=== PATIENT | female | born 1975 | race Caucasian/White ===

== ENCOUNTER → 2016-10-14 | Outpatient (CLI) | payer BC ==
[2016-10-14 12:02] LABS: Follicle Stimulating Hormone 7.1 mIU/mL
== END | disposition home or self-care (01) ==
LOC: LABWHC1 07:36
PROVIDERS: ATTEND Obstetrics & Gynecology
DX: L70.9 Acne, unspecified (principal); R53.83 Other fatigue
CPT/HCPCS: 36415; 82627; 82670; 83001; 84403

== ENCOUNTER 2016-10-15 09:43 | Emergency (ER) | payer BC ==
[2016-10-15 10:11] VITALS: BP 144/77; PULSE 82; RESP 18; TEMP 98.2
[2016-10-15] MEDS ORDERED: predniSONE 50 MG TAB PO STA (10:36)
--- NOTE | 2016-10-15 10:43 | ED ---
General Adult HPI - General Chief complaint: Skin/Abscess/Foreign Body Stated complaint: hives Time Seen by Provider: 10/15/16 10:29 Source: patient, RN notes reviewed Mode of arrival: ambulatory Limitations: no limitations - History of Present Illness Initial comments: Patient is a pleasant 41-year-old female presenting to the emergency Department with complaints of facial hives. Onset was just the past day. Patient has used a new soap recently. Patient also recently started Diflucan and Macrobid. Patient has used Diflucan and Macrobid multiple times previously. Patient complains of hives and itching on the face. Patient also noticed some mild swelling of the lip. No difficulty in breathing. No tongue or throat swelling. No history of hives in the face previously. No other area of involvement. No dyspnea. - Related Data Home Medications Medication Instructions Recorded Confirmed Fluconazole [Diflucan] 150 mg PO Q30D 12/29/15 01/06/16 Norethindrone AC-Eth Estradiol 1 tab PO DAILY 12/29/15 01/06/16 [Mabel 1.5 mg-30 Mcg Tablet] Previous Rx's Medication Instructions Recorded Acetaminophen-Codeine 300-30mg 1 - 2 each PO Q4HR PRN #40 tab 01/08/16 [Tylenol w/codeine #3] Ibuprofen [Motrin] 600 mg PO Q6HR PRN #40 tab 01/08/16 predniSONE 20 mg PO BID #10 tab 10/15/16 Allergies Allergy/AdvReac Type Severity Reaction Status Date / Time Opioids - Morphine Analogues AdvReac Nausea & Verified 10/15/16 10:11 Vomiting Review of Systems ROS Statement: Those systems with pertinent positive or pertinent negative responses have been documented in the HPI. ROS Other: All systems not noted in ROS Statement are negative. Constitutional: Denies: fever Eyes: Denies: eye pain ENT: Denies: ear pain Respiratory: Denies: cough, dyspnea Cardiovascular: Denies: chest pain Endocrine: Denies: fatigue Gastrointestinal: Denies: abdominal pain Musculoskeletal: Denies: back pain Skin: Reports: rash Neurological: Denies: weakness Past Medical History Additional Past Medical History / Comment(s): anemia, uterine fibroids History of Any Multi-Drug Resistant Organisms: None Reported Past Surgical History: Appendectomy, Section, Cholecystectomy, Hysterectomy, Uterine Ablation Additional Past Surgical History / Comment(s): LYMPH NODE BIOPSY LT SIDE OF NECK -BENIGN, hysterectomy 01-06-2016 Past Anesthesia/Blood Transfusion Reactions: No Reported Reaction Past Psychological History: No Psychological Hx Reported Smoking Status: Never smoker Past Alcohol Use History: Rare Past Drug Use History: None Reported, Unable to Obtain - Past Family History Mother Family Medical History: No Reported History Father Additional Family Medical History / Comment(s): father had a fall with brain injury, unable to administer anticoagulant, developed blood clot in his lungs General Exam Limitations: no limitations General appearance: alert, in no apparent distress Head exam: Present: atraumatic, normocephalic Eye exam: Present: normal appearance ENT exam: Present: normal oropharynx, other (No edema of the pharynx or tongue. There is trace edema of the lower lip) Neck exam: Present: normal inspection Respiratory exam: Present: normal lung sounds bilaterally Cardiovascular Exam: Present: regular rate, normal rhythm GI/Abdominal exam: Present: soft. Absent: distended, tenderness Extremities exam: Present: normal inspection Neurological exam: Present: alert Psychiatric exam: Present: normal affect, normal mood Skin exam: Present: urticaria (Several hives are present on the face) Course Vital Signs 10/15/16 10:06 Temperature 98.2 F Pulse Rate 82 Respiratory 18 Rate Blood Pressure 144/77 O2 Sat by Pulse 98 Oximetry Disposition Clinical Impression: Urticaria Disposition: HOME SELF-CARE Condition: Stable Instructions: Urticaria (ED), Angioedema (ED) Additional Instructions: [id number] Benadryl 4 times daily for the next 5 days. Discontinue facial wash. Also discontinue Diflucan and Macrobid. Please follow-up with primary care physician Monday. Return for swelling of the tongue or throat, difficulty breathing, increased swelling or worsening symptoms or other concerns. Prescriptions: predniSONE 20 mg PO BID #10 tab Referrals: Sherman Estes MD [Primary Care Provider] - 1-2 days
== END 2016-10-15 11:23 | disposition home or self-care (01) ==
LOC: EC 09:43
DX: L50.9 Urticaria, unspecified (principal); Z79.3 Long term (current) use of hormonal contraceptives; Z79.899 Other long term (current) drug therapy; Z88.5 Allergy status to narcotic agent
CPT/HCPCS: 99283; J7512

== ENCOUNTER → 2017-03-03 | Outpatient (CLI) | payer BC ==
[2017-03-03 07:48] LABS: Basophils # (A) 0.1 k/uL (0-0.2); Basophils % (A) 1 %; CHCM 35.5; Eosinophils # (A) 0.2 k/uL (0-0.7); Eosinophils % (A) 3 %; HCT 44.1 % (34.0-46.0); HGB 14.9 gm/dL (11.4-16.0); Luc % (Auto) 2; Lymphocytes # (A) 1.3 k/uL (1.0-4.8); Lymphocytes % (A) 22 %; MCH 29.7 pg (25.0-35.0); MCHC 33.8 g/dL (31.0-37.0); MCV 87.7 fL (80.0-100.0); Mean Platelet Volume 8.7; Monocytes # (A) 0.3 k/uL (0-1.0); Monocytes % (A) 5 %; Neutrophils % (A) 69 %; RBC 5.02 m/uL (3.80-5.40); RDW 13.5 % (11.5-15.5); WBC 5.9 k/uL (3.8-10.6); WBC (Perox) 5.59
[2017-03-03 10:26] LABS: ALT 55 U/L (9-52); AST 32 U/L (14-36); Alkaline Phosphatase 83 U/L (38-126); Anion Gap 8 mmol/L; Blood Urea Nitrogen 13 mg/dL (7-17); Calcium 9.2 mg/dL (8.4-10.2); Carbon Dioxide 27 mmol/L (22-30); Chloride 104 mmol/L (98-107); Cholesterol 168 mg/dL (<200); Glucose 84 mg/dL (74-99); HDL Cholesterol 48 mg/dL (40-60); Non-African American GFR(MDRD) >60 (>60 ml/min/1.73 sqM); Potassium 4.5 mmol/L (3.5-5.1); Sodium 139 mmol/L (137-145); Total Bilirubin 0.4 mg/dL (0.2-1.3); Total Protein 6.9 g/dL (6.3-8.2)
== END | disposition home or self-care (01) ==
LOC: LABWHC1 07:08
PROVIDERS: ATTEND Family Medicine
DX: Z00.00 Encounter for general adult medical examination without abnormal findings (principal); R63.5 Abnormal weight gain
CPT/HCPCS: 36415; 80053; 80061; 83001; 83002; 83527; 84443; 85025

== ENCOUNTER → 2017-05-02 | Outpatient (CLI) | payer BC ==
--- NOTE | 2017-05-04 08:17 | MM ---
Reason for exam: screening (asymptomatic). Last mammogram was performed 1 year and 2 months ago. History: Patient is postmenopausal. Took hormonal contraceptives for 3 months beginning at age 27. Physical Findings: A clinical breast exam by your physician is recommended on an annual basis and results should be correlated with mammographic findings. MG Screening Mammo w CAD Bilateral CC and MLO view(s) were taken. Prior study comparison: March 15, 2016, bilateral MG screening mammo w CAD. December 11, 2014, bilateral MG screening mammo w CAD. The breast tissue is heterogeneously dense. This may lower the sensitivity of mammography. There is no discrete abnormality. No significant changes when compared with prior studies. ASSESSMENT: Negative, BI-RAD 1 RECOMMENDATION: Routine screening mammogram of both breasts in 1 year.
== END | disposition home or self-care (01) ==
LOC: RADMAMWWP 16:05
PROVIDERS: ATTEND Obstetrics & Gynecology
DX: Z12.31 Encounter for screening mammogram for malignant neoplasm of breast (principal)

== ENCOUNTER → 2019-01-04 | Outpatient (CLI) | payer BC ==
--- NOTE | 2019-01-08 08:02 | MM ---
Reason for exam: screening (asymptomatic). Last mammogram was performed 1 year and 8 months ago. History: Patient is postmenopausal. Took hormonal contraceptives for 3 months beginning at age 27. Physical Findings: A clinical breast exam by your physician is recommended on an annual basis and results should be correlated with mammographic findings. MG Screening Mammo w CAD Bilateral CC and MLO view(s) were taken. Prior study comparison: May 02, 2017, bilateral MG screening mammo w CAD. March 15, 2016, bilateral MG screening mammo w CAD. The breast tissue is heterogeneously dense. This may lower the sensitivity of mammography. No significant changes when compared with prior studies. ASSESSMENT: Benign, BI-RAD 2 RECOMMENDATION: Routine screening mammogram of both breasts in 1 year.
== END | disposition home or self-care (01) ==
LOC: RADMAMWWP 06:59
PROVIDERS: ATTEND Family Medicine
DX: Z12.31 Encounter for screening mammogram for malignant neoplasm of breast (principal)
CPT/HCPCS: 77067

== ENCOUNTER → 2019-03-19 | Outpatient (CLI) | payer BC ==
--- NOTE | 2019-03-19 08:31 | CT ---
EXAMINATION TYPE: CT sinus wo con DATE OF EXAM: 03/19/2019 COMPARISON: None HISTORY: 43-year-old female chronic sinusitis/lt side of head pain x [address] DLP: 615.9 mGycm Automated exposure control for dose reduction was used. TECHNIQUE: Noncontrast axial views of the paranasal sinuses were obtained. Coronal reconstructions we re performed. FINDINGS: PARANASAL SINUSES: Trace mucosal thickening inferior right maxillary sinus. Trace mucosal thickening anterior ethmoid ai r cells. Tiny mucosal retention cyst suggested in the medial aspect of the right frontal sinus. Otherwise, the frontal and sphenoid sinuses are well pneumatized. There is no air-fluid level. Reactive giovany- osteogenesis is not seen. There is no destruction of the osseous baez of the paranasal sinuses. THE NASAL CAVITY: The osteomeatal complexes are patent. Slight leftward nasal septal deviation. The imaged brain and orbits are normal in appearance. Mastoid air cells and middle ear cavities are well pneumatized. Reformatted images confirm above findings. IMPRESSION: Only trace mucosal thickening floor of the right maxillary sinus and anterior ethmoid air cells. Slig ht leftward nasal septal deviation.
== END | disposition home or self-care (01) ==
LOC: RADCTMAIN 07:29
PROVIDERS: ATTEND Otolaryngology
DX: J32.9 Chronic sinusitis, unspecified (principal); J34.2 Deviated nasal septum
CPT/HCPCS: 70486

== ENCOUNTER → 2019-03-28 | Outpatient (CLI) | payer BC | END | disposition home or self-care (01) | LOC: LABWHC1 15:15 | PROVIDERS: ATTEND Otolaryngology | DX: J30.89 Other allergic rhinitis (principal) | CPT/HCPCS: 36415; 86001 ==

== ENCOUNTER → 2019-12-31 | Outpatient (CLI) | payer BC ==
[2019-12-31 08:32] LABS: Basophils # (A) 0.1 k/uL (0-0.2); Basophils % (A) 1 %; Eosinophils # (A) 0.2 k/uL (0-0.7); Eosinophils % (A) 3 %; HCT 42.4 % (34.0-46.0); HGB 13.7 gm/dL (11.4-16.0); Lymphocytes # (A) 1.5 k/uL (1.0-4.8); Lymphocytes % (A) 23 %; MCH 28.6 pg (25.0-35.0); MCHC 32.3 g/dL (31.0-37.0); MCV 88.5 fL (80.0-100.0); Mean Platelet Volume 8.9; Monocytes # (A) 0.3 k/uL (0-1.0); Monocytes % (A) 5 %; Neutrophils # (A) 4.4 k/uL (1.3-7.7); Neutrophils % (A) 66 %; Platelet Count 270 k/uL (150-450); RBC 4.79 m/uL (3.80-5.40); RDW 12.8 % (11.5-15.5); WBC 6.6 k/uL (3.8-10.6)
[2019-12-31 16:58] LABS: African American GFR (CKD) 89.5 (60.0-200.0); Albumin/Globulin Ratio 1.74 (1.60-3.17); Anion Gap 7.8 mmol/L (4.00-12.00); BUN/Creat Ratio 15.56 Ratio (12.00-20.00); Carbon Dioxide 26.2 mmol/L (21.6-31.8); Chol/HDL Ratio 3.83; Globulin 2.3 g/dL (1.6-3.3); Non-African American GFR(CKD) 77.2 (60.0-200.0); Potassium 4.2 mmol/L (3.5-5.5); Total Bilirubin 0.4 mg/dL (0.3-1.2); Total Protein 6.3 g/dL (6.2-8.2)
[2019-12-31 17:05] LABS: T4, Free (Free Thyroxine) 1.2 ng/dL (0.80-1.80)
[2019-12-31 17:06] LABS: Luteinizing Hormone 37.6 mIU/mL
[2019-12-31 18:21] LABS: Hemoglobin A1C 4.9 % (4.0-6.0)
== END | disposition home or self-care (01) ==
LOC: LABWHC1 07:50
PROVIDERS: ATTEND Family Medicine
DX: Z00.00 Encounter for general adult medical examination without abnormal findings (principal); R63.5 Abnormal weight gain; I78.1 Nevus, non-neoplastic
CPT/HCPCS: 36415; 80053; 80061; 83001; 83002; 83036; 83525; 84439; 84443; 85025

== ENCOUNTER 2020-10-18 11:06 | Emergency (ER) | payer BC ==
[2020-10-18 11:12] VITALS: TEMP 98.1
[2020-10-18 11:24] VITALS: RESP 18
[2020-10-18] MEDS ORDERED: SODIUM CHLORIDE 0.9% 1,000 ML IV STA (11:37)
[2020-10-18] MEDS ORDERED: KETOROLAC 15 MG/ML 1 ML VIAL IVP STA (11:37)
[2020-10-18] MEDS ORDERED: ONDANSETRON 4 MG/2 ML VIAL IVP STA (11:38)
[2020-10-18 11:54] LABS: Basophils # (A) 0.1 k/uL (0-0.2); Basophils % (A) 1 %; Eosinophils # (A) 0.2 k/uL (0-0.7); Eosinophils % (A) 3 %; HCT 41.8 % (34.0-46.0); HGB 14.5 gm/dL (11.4-16.0); Lymphocytes # (A) 1.5 k/uL (1.0-4.8); Lymphocytes % (A) 21 %; MCH 29.7 pg (25.0-35.0); MCHC 34.6 g/dL (31.0-37.0); MCV 85.9 fL (80.0-100.0); Mean Platelet Volume 7.9; Monocytes # (A) 0.3 k/uL (0-1.0); Monocytes % (A) 4 %; Neutrophils # (A) 4.9 k/uL (1.3-7.7); Neutrophils % (A) 69 %; Platelet Count 303 k/uL (150-450); RBC 4.87 m/uL (3.80-5.40); RDW 12.5 % (11.5-15.5); WBC 7.1 k/uL (3.8-10.6)
[2020-10-18 12:03] LABS: ALT 26 U/L (4-34); AST 28 U/L (14-36); African American GFR (CKD) >90 (>60 ml/min/1.73 sqM); Albumin 4.2 g/dL (3.5-5.0); Alkaline Phosphatase 88 U/L (38-126); Anion Gap 5 mmol/L; Blood Urea Nitrogen 18 mg/dL (7-17); Calcium 9.2 mg/dL (8.4-10.2); Carbon Dioxide 30 mmol/L (22-30); Chloride 102 mmol/L (98-107); Glucose 94 mg/dL (74-99); Non-African American GFR(CKD) 88 (>60 ml/min/1.73 sqM); Potassium 3.7 mmol/L (3.5-5.1); Sodium 137 mmol/L (137-145); Total Bilirubin 0.5 mg/dL (0.2-1.3); Total Protein 7.2 g/dL (6.3-8.2)
--- NOTE | 2020-10-18 12:05 | ED ---
General Adult HPI - General Chief complaint: Headache Stated complaint: BACK AND NECK PAIN, FEVER, CHEST PAIN Time Seen by Provider: 10/18/20 11:12 Source: patient, family Mode of arrival: ambulatory - History of Present Illness Initial comments: Patient is a 45-year-old female presenting to the emergency Department with complaints of a headache, some back discomfort and intermittent fevers over the past few days. Patient states she had her first dose of cold vaccine 2 weeks ago. She states a few days ago started developing a headache, body aches and mid back pain. She states it does hurt to take in a deep breath. She has been having low-grade temperatures anywhere from 99-101. She did have a couple blood test done 4 days ago, returns negative. She does admit to some mild nausea, no vomiting or diarrhea, no abdominal pain. She denies any shortness of breath. She states she has been able to eat and drink without difficulty. She has tried buir-[id number]-[id number] medications for her headache without improvement. She denies any blurry vision, no neck pain. She denies being secondary to hysterectomy. She has no further complaints at this time. Upon arrival to the ER, her vital signs are stable. - Related Data Home Medications Medication Instructions Recorded Confirmed Citalopram Hydrobromide [CeleXA] 20 mg PO HS 10/18/20 10/18/20 Ibuprofen [Motrin Ib] 400 mg PO Q8H PRN 10/18/20 10/18/20 Allergies Allergy/AdvReac Type Severity Reaction Status Date / Time fluconazole [From Diflucan] AdvReac Rash/Hives Verified 10/18/20 12:00 Opioids - Morphine Analogues AdvReac Nausea & Verified 10/18/20 12:00 Vomiting Review of Systems ROS Statement: Those systems with pertinent positive or pertinent negative responses have been documented in the HPI. ROS Other: All systems not noted in ROS Statement are negative. Past Medical History Additional Past Medical History / Comment(s): anemia, uterine fibroids History of Any Multi-Drug Resistant Organisms: None Reported Past Surgical History: Appendectomy, Section, Cholecystectomy, Hysterectomy, Uterine Ablation Additional Past Surgical History / Comment(s): LYMPH NODE BIOPSY LT SIDE OF NECK-BENIGN, hysterectomy 01-06-2016 Past Anesthesia/Blood Transfusion Reactions: No Reported Reaction Past Psychological History: No Psychological Hx Reported Smoking Status: Never smoker Past Alcohol Use History: Rare Past Drug Use History: None Reported - Past Family History Mother Family Medical History: No Reported History Father Additional Family Medical History / Comment(s): father had a fall with brain injury, unable to administer anticoagulant, developed blood clot in his lungs General Exam - General Exam Comments Initial Comments: GENERAL: Patient is well-developed and well-nourished. Patient is nontoxic and in no acute distress. HEAD: Atraumatic, normocephalic. EYES: Pupils equal round and reactive to light, extraocular movements intact, sclera anicteric, conjunctiva are normal. Eyelids were unremarkable. ENT: TMs normal, nares patent, oropharynx clear without exudates. Moist mucous membranes. NECK: Normal range of motion, supple without lymphadenopathy or JVD. LUNGS: Unlabored respirations. Breath sounds clear to auscultation bilaterally and equal. No wheezes rales or rhonchi. HEART: Regular rate and rhythm without murmurs, rubs or gallops. ABDOMEN: Soft, nontender, normoactive bowel sounds. No guarding, no rebound. No masses appreciated. : Deferred MUSCULOSKELETAL: Normal extremities with adequate strength and normal range of motion, no pitting or edema. No clubbing or cyanosis. NEUROLOGICAL: Patient is alert and oriented x 3. Motor and sensory are also intact. Cranial nerves II through XII grossly intact. Symmetrical smile. Normal speech, normal gait. PSYCH: Normal mood, normal affect. SKIN: Warm, Dry, normal turgor, no rashes or lesions noted. Course Vital Signs 10/18/20 10/18/20 10/18/20 11:08 11:23 12:25 Temperature 98.1 F Pulse Rate 69 77 70 Respiratory 16 18 18 Rate Blood Pressure 123/76 140/80 141/75 O2 Sat by Pulse 100 95 93 L Oximetry 10/18/20 10/18/20 12:59 13:11 Temperature 98.1 F Pulse Rate 67 67 Respiratory 18 18 Rate Blood Pressure 125/73 125/73 O2 Sat by Pulse 92 L 92 L Oximetry EKG Findings - EKG Comments: EKG Findings:: Normal sinus rhythm, nonspecific T-wave abnormalities, looks to be mostly artifact. No signs of acute ischemia. Ventricular rate 75, UT interval 07/01/1958, QTC 420. Medical Decision Making - Medical Decision Making Patient is a 45-year-old female here with complaints of a headache, back discomfort, fatigue and body aches as well as intermittent fevers over the past few days. She had first dose of Covid vaccine 2 weeks ago. She was tested for Covid 4 days ago and was negative. Her vital signs are stable. EKG shows no acute process. Labs are unremarkable, negative troponin. Rapid Covid is negative. Chest x-ray also shows no acute process. Patient's vital signs remained stable. I discussed with patient this could be immune response to her getting the vaccine. Recommended Tylenol or Motrin for her symptoms such as body aches and headaches. Continue to increase her fluid intake. She should follow up with her PCP. Patient is stable for discharge. Patient is in agreement with this plan of care. Return parameters were discussed with the patient and they verbalized understanding. Case discussed with Dr. Arellano. - Lab Data Result diagrams: 10/18/20 11:42 10/18/20 11:42 Lab Results 10/18/20 10/18/20 10/18/20 Range/Units 11:42 11:42 11:42 WBC 7.1 (3.8-10.6) k/uL RBC 4.87 (3.80-5.40) m/uL Hgb 14.5 (11.4-16.0) gm/dL Hct 41.8 (34.0-46.0) % MCV 85.9 (80.0-100.0) fL MCH 29.7 (25.0-35.0) pg MCHC 34.6 (31.0-37.0) g/dL RDW 12.5 (11.5-15.5) % Plt Count 303 (150-450) k/uL MPV 7.9 Neutrophils % 69 % Lymphocytes % 21 % Monocytes % 4 % Eosinophils % 3 % Basophils % 1 % Neutrophils # 4.9 (1.3-7.7) k/uL Lymphocytes # 1.5 (1.0-4.8) k/uL Monocytes # 0.3 (0-1.0) k/uL Eosinophils # 0.2 (0-0.7) k/uL Basophils # 0.1 (0-0.2) k/uL Sodium 137 (137-145) mmol/L Potassium 3.7 (3.5-5.1) mmol/L Chloride 102 (98-107) mmol/L Carbon Dioxide 30 (22-30) mmol/L Anion Gap 5 mmol/L BUN 18 H (7-17) mg/dL Creatinine 0.81 (0.52-1.04) mg/dL Est GFR (CKD-EPI)AfAm >90 (>60 ml/min/1.73 sqM) Est GFR (CKD-EPI)NonAf 88 (>60 ml/min/1.73 sqM) Glucose 94 (74-99) mg/dL Calcium 9.2 (8.4-10.2) mg/dL Total Bilirubin 0.5 (0.2-1.3) mg/dL AST 28 (14-36) U/L ALT 26 (4-34) U/L Alkaline Phosphatase 88 (38-126) U/L Troponin I (0.000-0.034) ng/mL Total Protein 7.2 (6.3-8.2) g/dL Albumin 4.2 (3.5-5.0) g/dL Coronavirus (PCR) Not Detected (Not Detectd) 10/18/20 Range/Units 11:42 WBC (3.8-10.6) k/uL RBC (3.80-5.40) m/uL Hgb (11.4-16.0) gm/dL Hct (34.0-46.0) % MCV (80.0-100.0) fL MCH (25.0-35.0) pg MCHC (31.0-37.0) g/dL RDW (11.5-15.5) % Plt Count (150-450) k/uL MPV Neutrophils % % Lymphocytes % % Monocytes % % Eosinophils % % Basophils % % Neutrophils # (1.3-7.7) k/uL Lymphocytes # (1.0-4.8) k/uL Monocytes # (0-1.0) k/uL Eosinophils # (0-0.7) k/uL Basophils # (0-0.2) k/uL Sodium (137-145) mmol/L Potassium (3.5-5.1) mmol/L Chloride (98-107) mmol/L Carbon Dioxide (22-30) mmol/L Anion Gap mmol/L BUN (7-17) mg/dL Creatinine (0.52-1.04) mg/dL Est GFR (CKD-EPI)AfAm (>60 ml/min/1.73 sqM) Est GFR (CKD-EPI)NonAf (>60 ml/min/1.73 sqM) Glucose (74-99) mg/dL Calcium (8.4-10.2) mg/dL Total Bilirubin (0.2-1.3) mg/dL AST (14-36) U/L ALT (4-34) U/L Alkaline Phosphatase (38-126) U/L Troponin I <0.012 (0.000-0.034) ng/mL Total Protein (6.3-8.2) g/dL Albumin (3.5-5.0) g/dL Coronavirus (PCR) (Not Detectd) Disposition Clinical Impression: Viral illness Disposition: HOME SELF-CARE Condition: Stable Instructions (If sedation given, give patient instructions): Viral Syndrome (ED) Additional Instructions: Please return to the Emergency Department if symptoms worsen or any other concerns. Continue to rest increase, your fluids and take Tylenol Motrin for any discomfort. Is patient prescribed a controlled substance at d/c from ED?: No Referrals: Sherman Estes MD [Primary Care Provider] - 1-2 days Time of Disposition: 13:05
--- NOTE | 2020-10-18 12:51 | XR ---
EXAMINATION TYPE: XR chest 2V DATE OF EXAM: 10/18/2020 COMPARISON: NONE HISTORY: Cough TECHNIQUE: Frontal and lateral views of the chest are obtained. FINDINGS: There is no focal air space opacity, pleural effusion, or pneumothorax seen. The cardiac silhouette size is within normal limits. The osseous structures are intact. Surgical clips are pres ent in the right upper quadrant. IMPRESSION: No acute cardiopulmonary process.
[2020-10-18 13:00] VITALS: BP 125/73; PULSE 67
== END 2020-10-18 13:12 | disposition home or self-care (01) ==
LOC: EC 11:06
DX: B34.9 Viral infection, unspecified (principal); Z20.822 Contact with and (suspected) exposure to COVID-19
CPT/HCPCS: 36415; 93005; 80053; 84484; 85025; 87635; 71046; 99285; 96374; 96375; 96361; J2405; J1885

== ENCOUNTER → 2021-03-16 | Outpatient (CLI) | payer BC ==
--- NOTE | 2021-03-17 04:18 | MR ---
EXAMINATION TYPE: MR ankle RT wo con DATE OF EXAM: 03/16/2021 COMPARISON: None HISTORY: Rt ankle lateral side pain Multiplanar multiecho imaging of the right ankle without contrast. Ankle mortise is anatomic. There is brace slight increased ankle joint fluid. Achilles tendon is inta ct. Plantar fascia appears intact. The medial and lateral flexor tendons appear intact. There is subc utaneous edema around the ankle and hindfoot. This is more noticeable on the lateral aspect of the hi ndfoot and ankle. There is no evidence of a fracture. There is mild increased signal in the medial dome of the talus on the T2 images that could be a mild bone bruise. I see no fracture line. The collateral ligaments lala ear intact. Subtalar joint appears normal. There is no evidence of a soft tissue mass. IMPRESSION: Subcutaneous edema around the hindfoot. Slight increased ankle joint fluid suggestive of some nonspec ific synovitis. No evidence of ligament tear. No fracture seen. There is probably a minimal bone brui se of the medial dome of the talus.
== END | disposition home or self-care (01) ==
LOC: RADMRIMAIN 15:16
PROVIDERS: ATTEND Podiatrist Foot & Ankle Surgery
DX: R60.0 Localized edema (principal)

== ENCOUNTER → 2021-10-11 | Outpatient (CLI) | payer BC ==
--- NOTE | 2021-10-11 09:17 | CT ---
EXAMINATION TYPE: CT abdomen pelvis wo con DATE OF EXAM: 10/11/2021 COMPARISON: CT dated 07/23/2015 HISTORY: LLQ pain CT DLP: 1047 mGycm Automated exposure control for dose reduction was used. TECHNIQUE: Helical acquisition of images was performed from the lung bases through the pelvis. FINDINGS: LUNG BASES: No significant abnormality is appreciated. LIVER/GB: Previous cholecystectomy. 5 mm hypodensity seen at the inferior aspect of the right hepatic lobe (image #18, series 3), appreciated previously and likely representing a hepatic cyst. PANCREAS: No significant abnormality is seen. SPLEEN: No significant abnormality is seen. ADRENALS: No significant abnormality is seen. KIDNEYS: No obvious renal abnormality by this nonenhanced CT scan. FREE AIR: No free air is visualized RETROPERITONEAL ADENOPATHY: Subcentimeter retroperitoneal lymph nodes without pathologically enlarge d lymph nodes REPRODUCTIVE ORGANS: Previous hysterectomy. Suspected left ovarian cyst measuring 2.6 cm, expected fo r the patient's age. Correlation with pelvic ultrasound results can be considered if clinically requi red. URINARY BLADDER: No significant abnormality is seen. PELVIC ADENOPATHY: No pathologically enlarged pelvic lymph nodes. OSSEOUS STRUCTURES: No aggressive bone lesion. BOWEL: Unremarkable stomach, duodenum and small bowel. Prgf-cp-[id number] fecal loading of the colon. No evidence of acute diverticulitis or acute colitis. Normal appendix. OTHER: No sizable ascites. Suspected pelvic adhesions. IMPRESSION: No definite acute abnormality or suspicious lesion seen in the abdomen or the pelvis by this nonenhan kristina CT scan. Incidental findings as described above.
== END | disposition home or self-care (01) ==
LOC: RADCTMAIN 06:52
PROVIDERS: ATTEND Family Medicine
DX: R10.32 Left lower quadrant pain (principal)
CPT/HCPCS: 74176

== ENCOUNTER → 2021-10-11 | Outpatient (CLI) | payer BC ==
[2021-10-11 14:49] LABS: Basophils # (A) 0.07 X 10*3/uL (0.00-0.10); Eosinophils # (A) 0.12 X 10*3/uL (0.04-0.35); Eosinophils % (A) 1.7 %; HCT 45.6 % (37.2-46.3); HGB 15.2 g/dL (12.0-15.0); Immature Grans, Automated 0.1 %; Lymphocytes # (A) 1.41 X 10*3/uL (0.90-5.00); Lymphocytes % (A) 20.2 %; MCH 29.9 pg (27.0-32.0); MCHC 33.3 g/dL (32.0-37.0); MCV 89.6 fL (80.0-97.0); Mean Platelet Volume 12.4 fL (9.5-12.2); Monocytes # (A) 0.37 X 10*3/uL (0.20-1.00); Monocytes % (A) 5.3 %; NRBC Per 100 WBC 0 /100 WBCS (0.0-0.0); Neutrophils # (A) 5.01 X 10*3/uL (1.80-7.70); Neutrophils % (A) 71.7 %; Platelet Count 287 X 10*3/uL (140-440); RBC 5.09 X 10*6/uL (4.10-5.20); RDW 12.3 % (11.5-14.5); WBC 6.99 X 10*3/uL (4.50-10.00)
[2021-10-11 15:09] LABS: % Iron Saturation 23.16 (12.00-45.00); ALT 21 U/L (8-44); AST 18 U/L (13-35); African American GFR (CKD) 106.4 (60.0-200.0); Albumin 4.5 g/dL (3.8-4.9); Albumin/Globulin Ratio 1.98 (1.60-3.17); Alkaline Phosphatase 90 U/L (41-126); BUN/Creat Ratio 16.99 Ratio (12.00-20.00); Blood Urea Nitrogen 13.1 mg/dL (9.0-27.0); Calcium 9.7 mg/dL (8.7-10.3); Carbon Dioxide 24.5 mmol/L (20.0-27.5); Chloride 99 mmol/L (96-109); Chol/HDL Ratio 3.94 Ratio; Globulin 2.3 g/dL (1.6-3.3); Glucose 82 mg/dL (70-110); Iron 75 ug/dL (50-170); LDL Cholesterol,Calculated 114.5 mg/dL (0.0-131.0); Non-African American GFR(CKD) 91.8 (60.0-200.0); Potassium 4.6 mmol/L (3.5-5.5); Sodium 136 mmol/L (135-145); Total Iron Binding Capacity 323 ug/dL (228-460); Total Protein 6.7 g/dL (6.2-8.2); Uric Acid 3.1 mg/dL (2.9-7.7)
[2021-10-11 15:26] LABS: Rheumatoid Factor, Qnt <10 IU/mL (0-15)
[2021-10-11 15:47] LABS: Erythrocyte Sedimentation Rate 17 mm/Hr (0-20)
== END | disposition home or self-care (01) ==
LOC: LABWHC1 07:13
PROVIDERS: ATTEND Family Medicine
DX: Z00.00 Encounter for general adult medical examination without abnormal findings (principal); I78.1 Nevus, non-neoplastic; M25.50 Pain in unspecified joint; R53.83 Other fatigue
CPT/HCPCS: 36415; 80053; 80061; 82306; 82607; 82746; 83036; 83540; 83550; 84443; 84550; 85025; 85652; 86038; 86140; 86431

== ENCOUNTER 2022-11-15 10:15 | Day surgery (SDC) | payer BC ==
[~2022-11-15 10:15] MED LIST: LACTATED RINGERS 1,000 ML IV SCH; LIDOCAINE 1% (10MG/ML) FOR IV START INTRADERMA PRN
[2022-11-15 11:57] VITALS: TEMP 97.2
[2022-11-15] MEDS ORDERED: PROPOFOL 10 MG/ML 20 ML VIAL IV ONE (12:38)
--- NOTE | 2022-11-15 13:01 | P.PCN ---
Date of Procedure: 11/15/22 Procedure(s) Performed: BRIEF HISTORY: Patient is a 47-year-old pleasant female scheduled for an elective colonoscopy as a part of screening for colon cancer/positive cologuard. PROCEDURE PERFORMED: Colonoscopy with snare polypectomy. PREOPERATIVE DIAGNOSIS: Screening for colon cancer/positive cologuard. IV sedation per Anesthesia. PROCEDURE: After informed consent was obtained, the patient, was brought into the endoscopy unit. IV sedation was administered by Anesthesia under continuous monitoring. Digital rectal examination was normal. Initially the Olympus CF-160 flexible video colonoscope was then inserted in the rectum, gradually advanced into the cecum without any difficulty. Careful examination was performed as the scope was gradually being withdrawn. Ileocecal valve and the appendiceal orifice were visualized and appeared normal. Prep was excellent. Mucosa of the cecum, ascending colon, transverse colon, appeared normal. In the descending colon there was a 1.5 cm broad-based polyp that was removed by snare polypectomy. Rest of the descending colon, sigmoid colon, and rectum appeared normal. Retroflexion was performed in the rectum and no lesions were seen. The patient tolerated the procedure well. IMPRESSION: 1.5 cm broad-based hepatic flexure polyp status post polypectomy rest of the colon; appeared normal RECOMMENDATIONS: Findings of this examination were discussed with the patient as well as a family. She was advised to follow with the biopsy results. If the biopsy results adenoma she can have a repeat colonoscopy in 3 years.
[2022-11-15 13:05] VITALS: RESP 16
[2022-11-15 13:22] VITALS: BP 120/74; PULSE 76
== END 2022-11-15 13:36 | disposition home or self-care (01) ==
LOC: ORWHC2ENDO 10:15
PROVIDERS: ATTEND Internal Medicine Gastroenterology
DX: K63.5 Polyp of colon (principal); K21.9 Gastro-esophageal reflux disease without esophagitis; Z88.8 Allergy status to other drugs, medicaments and biological substances; Z79.899 Other long term (current) drug therapy; Z98.890 Other specified postprocedural states
CPT/HCPCS: 88305; 45385; J2704

== ENCOUNTER → 2023-04-14 | Outpatient (CLI) | payer BC ==
[2023-04-14 16:39] LABS: Basophils % (A) 1.4 %; Eosinophils # (A) 0.06 X 10*3/uL (0.04-0.35); Eosinophils % (A) 0.8 %; HCT 45.1 % (37.2-46.3); HGB 14.5 d/dL (12.0-15.0); Lymphocytes # (A) 1.74 X 10*3/uL (0.90-5.00); Lymphocytes % (A) 23.8 %; MCH 28.7 pg (27.0-32.0); MCHC 32.2 d/dL (32.0-37.0); MCV 89.1 FL (80.0-97.0); Mean Platelet Volume 12.1 FL (9.5-12.2); Monocytes # (A) 0.46 X 10*3/uL (0.20-1.00); Monocytes % (A) 6.3 %; NRBC Per 100 WBC 0 X 10*3/uL (0.00-0.01); Neutrophils # (A) 4.94 X 10*3/uL (1.80-7.70); Neutrophils % (A) 67.6 %; Platelet Count 304 X 10*3/uL (140-440); RBC 5.06 X 10*6/uL (4.10-5.20); RDW 12.6 % (11.5-14.5); WBC 7.31 X 10*3/uL (4.50-10.00)
[2023-04-14 16:58] LABS: ALT 16 U/L (8-44); AST 18 U/L (13-35); Albumin 4.3 d/dL (3.8-4.9); Albumin/Globulin Ratio 1.72 Ratio (1.60-3.17); Alkaline Phosphatase 99 U/L (41-126); BUN/Creat Ratio 20.62 Ratio (12.00-20.00); Blood Urea Nitrogen 16.5 mg/dL (9.0-27.0); Calcium 9.5 mg/dL (8.7-10.3); Carbon Dioxide 25.1 mmol/L (21.6-31.8); Chloride 104 mmol/L (96-109); Chol/HDL Ratio 3.97 Ratio; Globulin 2.5 d/dL (1.6-3.3); Glucose 88 mg/dL (70-110); LDL Cholesterol,Calculated 108.1 mg/dL (0.0-131.0); Potassium 5.2 mmol/L (3.5-5.5); Sodium 139 mmol/L (135-145); Total Bilirubin 0.4 mg/dL (0.3-1.2); Total Protein 6.8 d/dL (6.2-8.2)
== END | disposition home or self-care (01) ==
LOC: LABWHC1 08:12
PROVIDERS: ATTEND Family Medicine
DX: Z00.00 Encounter for general adult medical examination without abnormal findings (principal)
CPT/HCPCS: 36415; 80053; 80061; 82306; 84443; 84481; 85025

== ENCOUNTER 2023-08-11 07:29 | Day surgery (SDC) | payer BC ==
[~2023-08-11 07:29] MED LIST changes: +HYDROmorphone 0.5 MG/0.5 ML SYRINGE IVP PRN; +METOCLOPRAMIDE 5 MG/ML 2 ML VIAL IVP PRN; +MIDAZOLAM 2 MG/2 ML VIAL IV PRN; +Pre Op ABX Message 1 EACH MISC MISCELLANE ONE
[2023-08-11] MEDS: LACTATED RINGERS 1,000 ML IV ONE ×2 (07:56→11:24)
[2023-08-11] MEDS: DEXAMETHASONE SOD PHOSPHATE 4 MG/ML 1 ML VIAL IV ONE (08:23)
[2023-08-11] MEDS: FAMOTIDINE 20 MG/2 ML VIAL IV ONE (08:23)
[2023-08-11] MEDS: ONDANSETRON 4 MG/2 ML VIAL IVP ONE (08:23)
[2023-08-11] MEDS: SCOPOLAMINE 1 MG/72 HR PATCH TRANSDERM ONE (08:24)
[2023-08-11] MEDS: MIDAZOLAM 2 MG/2 ML VIAL IVP ONE (08:31)
[2023-08-11 08:37] LABS: Basophils # (A) 0.1 k/uL (0-0.2); Basophils % (A) 2 %; Eosinophils # (A) 0.2 k/uL (0-0.7); Eosinophils % (A) 3 %; HCT 43.6 % (34.0-46.0); HGB 14.4 gm/dL (11.4-16.0); Lymphocytes # (A) 1.4 k/uL (1.0-4.8); Lymphocytes % (A) 24 %; MCH 28.6 pg (25.0-35.0); MCV 86.8 fL (80.0-100.0); Mean Platelet Volume 8.7; Monocytes # (A) 0.3 k/uL (0-1.0); Monocytes % (A) 5 %; Neutrophils # (A) 3.9 k/uL (1.3-7.7); Neutrophils % (A) 65 %; Platelet Count 257 k/uL (150-450); RBC 5.03 m/uL (3.80-5.40); RDW 12.7 % (11.5-15.5); WBC 6.1 k/uL (3.8-10.6)
--- NOTE | 2023-08-11 08:49 | P.ANPRN ---
Procedure Note - Anesthesia - Nerve Block Performed Right Popliteal Single Time Out Performed: Yes Date of Procedure: 08/11/23 Procedure Start Time: 08:30 Procedure Stop Time: 08:38 Location of Patient: PreOp Indication: Acute Post-Operative Pain, Analgesia, Requested by Surgeon Sedation Type: Sedate with meaningful contact maintained Position: Left Lateral Catheter: None Needle Types: Pajunk Needle Gauge: 21 Ultrasound used to visualize needle placement: Yes Ultrasound used to observe medication spread: Yes Injectate: 0.5% Ropivacaine (see comment for volume) (Ropiv 25ml+decadron 4mg) Blood Aspirated: No Pain Paresthesia on Injection Noted: No Resistance on Injection: Normal Image Stored and Saved: Yes Events: Uneventful and Well Tolerated
--- NOTE | 2023-08-11 08:51 | P.ANPRN ---
Procedure Note - Anesthesia - Nerve Block Performed Right Adductor Canal Single Time Out Performed: Yes Date of Procedure: 08/11/23 Procedure Start Time: 08:39 Procedure Stop Time: 08:44 Location of Patient: PreOp Indication: Acute Post-Operative Pain, Analgesia, Requested by Surgeon Sedation Type: Sedate with meaningful contact maintained Preparation: Sterile Prep Position: Supine Catheter: None Needle Types: Pajunk Needle Gauge: 21 Ultrasound used to visualize needle placement: Yes Ultrasound used to observe medication spread: Yes Injectate: 0.5% Ropivacaine (see comment for volume) (Ropiv 20ml+decadron 4mg) Blood Aspirated: No Pain Paresthesia on Injection Noted: No Resistance on Injection: Normal Image Stored and Saved: Yes Events: Uneventful and Well Tolerated
[2023-08-11] MEDS ORDERED: DEXAMETHASONE SOD PHOSPHATE 4 MG/ML 1 ML VIAL ONE (08:58)
[2023-08-11] MEDS ORDERED: GLYCOPYRROLATE 0.2 MG/ML 2 ML VIAL ONE (08:58)
[2023-08-11] MEDS ORDERED: LIDOCAINE 1% INJ 10MG/ML (20 ML MDV) ONE (08:58)
[2023-08-11] MEDS ORDERED: SUCCINYLCHOLINE CHLORIDE 200 MG/10 ML VIAL IV ONE (08:58)
[2023-08-11] MEDS ORDERED: MIDAZOLAM 2 MG/2 ML VIAL ONE (08:58)
[2023-08-11] MEDS ORDERED: NEOSTIGMINE 1 MG/ML 10 ML VIAL ONE (08:58)
[2023-08-11] MEDS ORDERED: fentaNYL (PF) 50 MCG/ML 2 ML AMP ONE (08:58)
[2023-08-11] MEDS ORDERED: ROCURONIUM 10 MG/ML (5 ML VIAL) IV ONE (08:58)
[2023-08-11] MEDS ORDERED: PROPOFOL 10 MG/ML 20 ML VIAL IV ONE (08:58)
[2023-08-11] MEDS ORDERED: BUPIVACAIN-EPI 0.5%-1:200,000 30 ML VIAL ONE (08:58)
[2023-08-11] MEDS: SODIUM CHLORIDE 0.9% 50 ML with ceFAZolin 2,000 MG IV ONE (09:15)
[2023-08-11] MEDS: ceFAZolin 1,000 MG in SODIUM CHLORIDE 0.9% 1,000 ML IRRIGATION ONE (09:33)
--- NOTE | 2023-08-11 10:25 | P.OP ---
Date of Procedure: 08/11/23 Preoperative Diagnosis: 1. Right ankle instability 2. Spontaneous rupture flexor tendon right ankle (Peroneus brevis) Postoperative Diagnosis: 1. Same 2. Same Procedure(s) Performed: 1. Secondary repair right lateral ankle ligaments 2. Secondary repair flexor tendon (peroneus brevis) right ankle Implants: Arthrex internal brace Arthrex fiber Miguelangel anchors 2 Anesthesia: GETA Surgeon: Sathish Corey Estimated Blood Loss (ml): 5 Pathology: none sent Condition: stable Disposition: PACU Description of Procedure: Prior to the patient being brought to the operating room, anesthesia administered a nerve block on the affected extremity. The patient was brought into the operative room and placed on table supine position. Timeout was taken to confirm correct patient identifiers, correct laterality of surgery, and correct procedure. Once all staff in the room were in agreement with the timeout, the patient was induced and placed under general anesthesia. A well- padded tourniquet was placed on the left calf and a bump underneath the hip of the ipsilateral extremity to internally rotate the leg. The leg was then prepped and draped in usual manner. The leg was exsanguinated and the tourniquet inflated to 250 mmHg. Attention was directed over the anterior lateral ankle, where a incision was made down the midline of the lateral malleolus. The incision was deepened down to the subcutaneous tissue careful to identify, avoid, and retract any neurovascular structures and cauterize any bleeding vessels. Dissection was carried posteriorly through the subcutaneous layer down to the peroneal tendon sheath. The sheath was incised off the posterior aspect of the lateral malleolus extending to the distal tip. The tendons were delivered into the surgical field and visually inspected. The peroneus longus tendon was normal however the peroneus brevis tendon showed that had a split longitudinal tear. A scalpel was used to sharply excise the abnormal tendon tissue. 2-0 Vicryl was used to re-tubularize the tendon. Both tendons were placed back into the peroneal groove. Range of motion was performed and it was noted that the tendons glided smoothly through the fibular groove. The wound is irrigated thoroughly with antibiotic saline. The inferior peroneal retinaculum was oversewn into the peroneal groove to lock the tendons in place. The rest of the peroneal retinaculum and tendon sheath were repaired with 0 Vicryl. Then attention was directed to the anterior lateral ankle where blunt dissection was continued down to the lateral ankle joint capsule and ligamentous structures. The capsule and ligamentous structures were sharply incised off of the anterior surface the lateral malleolus. A Corey was used to remove the cortical bone on the anterior surface the lateral malleolus and the roughened edges smoothed with a rasp. This is to allow adhesion of the ligaments upon repair. With the ankle in neutral position, the soft tissue over the lateral aspect of the talus, anterior to the joint surface, and near the junction of the neck, was palpated for the location of the 4.75 mm anchor. A small stab incision was made through the tissue and then the drill hole for the 4.75 mm anchor was made into the talus in such a way to avoid the ankle and subtalar joints. The hole was tapped and then the 4.75 mm anchor inserted and advanced down to proper depth. The wind farm support specialist was removed and the suture was set aside. The same drill bit was used for the drill hole in the lateral malleolus for the 3.5 mm anchor. Linen Room Houseperson holes for the fiber Efrain anchors were made, one inferior and one superior, to the 3.4 mm drill hole. With the drill guide still in place, the fiber Efrain anchors were inserted through the guide and then impacted down to proper depth. The guide was removed as was the wind farm support specialist. Tension was placed on the suture to lock the anchor into the bone. The wound is then thoroughly irrigated with antibiotic saline. The suture on the fiber Efrain anchors was used to capture the distal ligamentous and capsular structures. With the ankle and maximum dorsiflexion and eversion, the suture was tied bringing the ligament and capsular structures back to the anterior surface the lateral malleolus. The 2 arms of the suture from the 4.75 mm anchor were then inserted through the 3.5 mm anchor, which was then aligned with the drill hole lateral malleolus. Utilizing described tensioning techniques, the anchor and suture were inserted into lateral malleolus and the anchor advanced until proper depth. At that point ankle was tested for stability: Were anterior drawer and inversion stress are negative. The wound is irrigated with antibiotic saline. The fiber Efrain suture was then used to sew the soft tissue flap from the periosteum of the lateral malleolus over the repair site in a pants over vest fashion. The subcutaneous layer was closed with 4-0 Monocryl. And skin closure done with 4-0 Stratafix in a running subcuticular manner. Dermal glue was placed over the incision and allowed to dry. Steri- Strips were applied and then a Arthrex jumpstart dressing. A dry sterile dressing was applied to the ankle. The tourniquet was released and capillary refill return to all digits on the foot.
[2023-08-11] MEDS: KETOROLAC 15 MG/ML 1 ML VIAL IVP ONE (10:43)
[2023-08-11] MEDS: fentaNYL (PF) 50 MCG/ML 2 ML AMP IVP PRN (10:54)
[2023-08-11 10:57] VITALS: TEMP 97.1
[2023-08-11 11:28] VITALS: RESP 16
[2023-08-11 13:02] VITALS: BP 119/66; PULSE 71
== END 2023-08-11 12:19 | disposition home or self-care (01) ==
LOC: OR 07:29
PROVIDERS: ATTEND Podiatrist
DX: M25.371 Other instability, right ankle (principal); M66.879 Spontaneous rupture of other tendons, unspecified ankle and foot; G89.18 Other acute postprocedural pain; D64.9 Anemia, unspecified; D26.9 Other benign neoplasm of uterus, unspecified; K21.9 Gastro-esophageal reflux disease without esophagitis; F10.90 Alcohol use, unspecified, uncomplicated; K30 Functional dyspepsia; F32.A Depression, unspecified; Z79.899 Other long term (current) drug therapy; Z90.49 Acquired absence of other specified parts of digestive tract; Z90.710 Acquired absence of both cervix and uterus; Z98.890 Other specified postprocedural states; Z88.5 Allergy status to narcotic agent; Z88.8 Allergy status to other drugs, medicaments and biological substances
CPT/HCPCS: 28200; 27698; 64447; 64445; 85025; C1713 ×2; J2250; J0330; J1100; J2710; J2405; J0690; J2001; J3010; J3490; J1885; J2704

== ENCOUNTER → 2023-10-16 | Outpatient (CLI) | payer BC ==
--- NOTE | 2023-10-16 17:41 | US ---
EXAMINATION TYPE: US venous doppler duplex LE RT DATE OF EXAM: 10/16/2023 4:50 PM COMPARISON: NONE CLINICAL INDICATION: Female, 48 years old with history of M79.604 PAIN IN RIGHT LEG; fell yesterday, no h/o dvt SIDE PERFORMED: Right TECHNIQUE: The lower extremity deep venous system is examined utilizing real time linear array sonog shawna with graded compression, doppler sonography and color-flow sonography. VESSELS IMAGED: Common Femoral Vein Deep Femoral Vein Greater Saphenous Vein * Femoral Vein Popliteal Vein Small Saphenous Vein * Proximal Calf Veins (* superficial vessels) The deep venous system of the right lower extremity from the right common femoral vein to the proxima l calf veins is patent and compressible with augmentable flow and normal waveforms. IMPRESSION: No evidence of DVT of the right lower extremity from the common femoral vein to the proximal calf vei ns.
== END | disposition home or self-care (01) ==
LOC: RADUSWWP 16:31
PROVIDERS: ATTEND Internal Medicine
DX: M79.604 Pain in right leg (principal)

== ENCOUNTER → 2023-10-23 | Outpatient (CLI) | payer BC ==
--- NOTE | 2023-10-23 17:29 | XR ---
EXAMINATION TYPE: XR tibia fibula RT DATE OF EXAM: 10/23/2023 3:23 PM CLINICAL INDICATION:Female, 48 years old with history of S89.91XA, INJURY TO RIGHT LOWER EXTREMITY; COMPARISON: None TECHNIQUE: XR tibia fibula RT; tibia/fibula was examined in AP and lateral projections. FINDINGS: No evidence of any acute osseous pathology, joint dislocation,. There is soft tissue swelli ng throughout the lower externally. IMPRESSION: Soft tissue swelling without evidence of acute fracture.
== END | disposition home or self-care (01) ==
LOC: RADXRMAIN 15:07
PROVIDERS: ATTEND Internal Medicine
DX: S89.91XA Unspecified injury of right lower leg, initial encounter (principal); M79.89 Other specified soft tissue disorders; X58.XXXA Exposure to other specified factors, initial encounter

== ENCOUNTER → 2023-10-31 | Outpatient (CLI) | payer BC ==
--- NOTE | 2023-11-02 18:58 | MM ---
Reason for Exam: Screening (asymptomatic). Last mammogram was performed 4 year(s) and 10 month(s) ago. Patient History: Menarche at age 13. First Full-Term at age 24. Hysterectomy at age 40. Postmenopausal. Hormonal Contraceptives for 3 months starting at age 27. Risk Values: Patricia 5 year model risk: 0.9%. NCI Lifetime model risk: 9.2%. Prior Study Comparison: 03/15/2016 Bilateral Screening Mammogram, [facility]. 05/02/2017 Bilateral Screening Mammogram, [facility]. 01/04/2019 Bilateral Screening Mammogram, [facility]. Tissue Density: There are scattered areas of fibroglandular density. Findings: Analyzed By CAD. There is no suspicious group of microcalcifications or new suspicious mass in either breast. Overall Assessment: Negative, BI-RAD 1 Management: Screening Mammogram of both breasts in 1 year. . Patient should continue monthly self-breast exams. A clinical breast exam by your physician is recommended on an annual basis. This exam should not preclude additional follow-up of suspicious palpable abnormalities. Note on Patricia scores and lifetime risk: 1. A Patricia score greater than 3% is considered moderate risk. If this is the case, consider specialist referral to assess eligibility for a risk reducing agent. 2. If overall lifetime risk for the development of breast cancer is 20% or higher, the patient may qualify for future screening with alternating mammogram and breast MRI. Electronically signed and approved by: Dylan Rodriguez M.D. Radiologist
== END | disposition home or self-care (01) ==
LOC: RADUSWWP 14:29
PROVIDERS: ATTEND Internal Medicine
DX: Z12.31 Encounter for screening mammogram for malignant neoplasm of breast (principal); Z78.0 Asymptomatic menopausal state
CPT/HCPCS: 77063; 77067

== ENCOUNTER → 2023-11-08 | Outpatient (CLI) | payer BC ==
--- NOTE | 2023-11-08 09:04 | CT ---
EXAMINATION TYPE: CT lower extremity RT wo con CT DLP: 855.70 mGycm, Automated exposure control for dose reduction was used. DATE OF EXAM: 11/08/2023 8:53 AM COMPARISON: . Extremity radiograph 10/23/2023 CLINICAL INDICATION:Female, 48 years old with history of M79.604 PAIN IN RIGHT LEG; PHH, Pain in lowe r RT leg, pt fell off lawnmower and hit her hicks on the mower. BB shabazz area of pain and bruising. TECHNIQUE: Axial images were obtained of the CT lower extremity RT wo con, Additional coronal and sag ittal reformatted images and soft tissue and bone window were obtained for review. 3-D reconstruction was created on a separate workstation. Contrast used: mL of , (None if empty) Oral contrast used: (None if empty) FINDINGS: There is no evidence of fracture, subluxation, or dislocation. No significant soft tissue swelling or joint effusion is identified. No focal muscular atrophy. No radiopaque foreign body ident ified. Mild streaky edema along the anterior hicks in the area of patient's marker. Mild degeneration changes of the knee with osteophyte formation into the ankle with osteophyte formation. IMPRESSION: 1. No evidence of fracture. 2. There is subcutaneous edema in the area of the marker on the anterior hicks. No evidence of fractu re. 3. Mild degeneration changes of the knee and ankle.
== END | disposition home or self-care (01) ==
LOC: RADCTMAIN 08:00
PROVIDERS: ATTEND Internal Medicine
DX: R60.0 Localized edema (principal); M79.604 Pain in right leg

== ENCOUNTER → 2024-01-17 | Outpatient (CLI) | payer BC ==
--- NOTE | 2024-01-17 09:32 | US ---
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 FINDINGS: EXAM MEASUREMENTS: Liver Length: 19.0 cm CBD: 0.5 cm Spleen: 10.2 cm Right Kidney: 10.8 x 4.2 x 4.4 cm Left Kidney: 10.5 x 5.2 x 5.0 cm INFORMATION TECHNOLOGY PROGRAM MANAGER NOTES: Pancreas: wnl, tail obscured by overlying bowel gas Liver: Enlarged, heterogeneous, difficult to penetrate, small cystic lesion right lobe= 1.1 x 0.7 x 1.1 cm Gallbladder: Surgically absent CBD: wnl Spleen: wnl Right Kidney: wnl, lower pole gassed out Left Kidney: wnl Upper IVC: wnl Abd Aorta: wnl The liver is enlarged with heterogenous appearance and difficult to penetrate. Small simple cyst is identified within the right hepatic lobe measuring up to 1.1 cm. No surface nodularity identified. Th e intrahepatic portion of the IVC and proximal abdominal aorta are within normal limits. Gallbladder is surgically absent. Common bile duct is unremarkable. The visualized portions of the pancreas are homogenous. The spleen is unremarkable. Kidneys are symmetric and free of hydronephrosis. No asad l lesions are seen. IMPRESSION: 1. Hepatomegaly with diffuse heterogenous appearance of the liver suggesting hepatocellular disease. Small 1.1 cm right hepatic lobe cyst is identified. 2. Postcholecystectomy changes.
== END | disposition home or self-care (01) ==
LOC: RADUSWWP 07:50
PROVIDERS: ATTEND Internal Medicine
DX: K75.4 Autoimmune hepatitis (principal); K76.89 Other specified diseases of liver; R16.0 Hepatomegaly, not elsewhere classified
CPT/HCPCS: 76700

== ENCOUNTER → 2024-01-17 | Outpatient (CLI) | payer BC ==
[2024-01-17 18:42] LABS: Basophils # (A) 0.09 X 10*3/uL (0.00-0.10); Basophils % (A) 1.1 %; Eosinophils # (A) 0.11 X 10*3/uL (0.04-0.35); Eosinophils % (A) 1.3 %; HCT 44.4 % (37.2-46.3); HGB 14.2 g/dL (12.0-15.0); Lymphocytes # (A) 1.84 X 10*3/uL (0.90-5.00); Lymphocytes % (A) 21.5 %; MCH 28.3 pg (27.0-32.0); MCV 88.6 FL (80.0-97.0); Mean Platelet Volume 12.2 FL (9.5-12.2); Monocytes # (A) 0.58 X 10*3/uL (0.20-1.00); Monocytes % (A) 6.8 %; NRBC Per 100 WBC 0 X 10*3/uL (0.00-0.01); Neutrophils # (A) 5.91 X 10*3/uL (1.80-7.70); Neutrophils % (A) 68.9 %; Platelet Count 272 X 10*3/uL (140-440); RBC 5.01 X 10*6/uL (4.10-5.20); RDW 12.7 % (11.5-14.5); WBC 8.56 X 10*3/uL (4.50-10.00)
[2024-01-17 19:16] LABS: ALT 16 U/L (8-44); AST 18 U/L (13-35); Albumin 4.4 g/dL (3.8-4.9); Albumin/Globulin Ratio 1.69 Ratio (1.60-3.17); Alkaline Phosphatase 136 U/L (41-126); BUN/Creat Ratio 17.38 Ratio (12.00-20.00); Blood Urea Nitrogen 13.9 mg/dL (9.0-27.0); Calcium 9.8 mg/dL (8.7-10.3); Carbon Dioxide 26.2 mmol/L (21.6-31.8); Chloride 101 mmol/L (96-109); Globulin 2.6 g/dL (1.6-3.3); Glucose 97 mg/dL (70-110); Potassium 4.7 mmol/L (3.5-5.5); Sodium 139 mmol/L (135-145); Total Bilirubin 0.4 mg/dL (0.3-1.2)
== END | disposition home or self-care (01) ==
LOC: LABWHC1 11:47
PROVIDERS: ATTEND Internal Medicine Gastroenterology
DX: R89.4 Abnormal immunological findings in specimens from other organs, systems and tissues (principal)
CPT/HCPCS: 36415; 80053; 85025

== ENCOUNTER → 2024-01-25 | Outpatient (CLI) | payer BC ==
--- NOTE | 2024-01-25 10:59 | CT ---
EXAMINATION TYPE: CT abdomen pelvis wo/w con DATE OF EXAM: 01/25/2024 COMPARISON: Ultrasound 01/17/2024, CT 10/11/2021 HISTORY: right side pain, rt side back pain, nausea, vomitting CT DLP: 3077.60 mGycm Automated exposure control for dose reduction was used. CONTRAST: CT scan of the abdomen pelvis is performed without and with IV Contrast, patient injected with 100 mL of Isovue 300. FINDINGS- LUNG BASES- liver is enlarged measuring 18 cm. Slightly reduced in attenuation which can be associat ed with hepatocellular disease or hepatic steatosis. No gallstones. Tiny hypodensity measuring 4 mm i n the right lobe the liver too small to characterize but statistically most likely related to a cyst. LIVER/GB- No gross abnormality is appreciated. PANCREAS- No gross abnormality is seen. SPLEEN- No gross abnormality is seen. ADRENALS- No gross abnormality is seen. KIDNEYS/BLADDER- no hydronephrosis nephrolithiasis or renal mass. BOWEL- no evidence of obstruction. Appendix normal. No significant diverticular disease. Small hiata l hernia. LYMPH NODES- No greater than 1cm abdominal or pelvic lymph nodes are appreciated. OSSEOUS STRUCTURES- mild degenerative changes spine. OTHER- findings are suggestive of prior hysterectomy. Soft tissue nodule in the right adnexa likely related to ovary. Stable from prior exam. Tiny fat-containing periumbilical and inguinal hernia. IMPRESSION- 1. No acute process. 2. Hepatomegaly with findings suggestive of hepatic steatosis. 3. Findings suggest prior cholecystectomy and hysterectomy. 4. Small hiatal hernia.
== END | disposition home or self-care (01) ==
LOC: RADCTMAIN 07:11
PROVIDERS: ATTEND Internal Medicine
DX: R11.2 Nausea with vomiting, unspecified (principal); R16.0 Hepatomegaly, not elsewhere classified; K44.9 Diaphragmatic hernia without obstruction or gangrene; Z90.710 Acquired absence of both cervix and uterus
CPT/HCPCS: 74178; Q9967

== ENCOUNTER 2024-09-06 06:00 | Day surgery (SDC) | payer BC ==
[~2024-09-06 06:00] MED LIST changes: -HYDROmorphone 0.5 MG/0.5 ML SYRINGE IVP PRN; -LACTATED RINGERS 1,000 ML IV SCH; -LIDOCAINE 1% (10MG/ML) FOR IV START INTRADERMA PRN; -METOCLOPRAMIDE 5 MG/ML 2 ML VIAL IVP PRN; -MIDAZOLAM 2 MG/2 ML VIAL IV PRN; -Pre Op ABX Message 1 EACH MISC MISCELLANE ONE; +SCOPOLAMINE 1 MG/72 HR PATCH TRANSDERM ONE
[2024-09-06] MEDS: LACTATED RINGERS 1,000 ML IV SCH (06:59)
[2024-09-06] MEDS: DEXAMETHASONE SOD PHOSPHATE 4 MG/ML 1 ML VIAL IV ONE (07:00)
[2024-09-06] MEDS ORDERED: fentaNYL (PF) 50 MCG/ML 2 ML AMP IV PRN (07:00)
[2024-09-06] MEDS ORDERED: MIDAZOLAM 2 MG/2 ML VIAL IV PRN (07:00)
[2024-09-06] MEDS: ONDANSETRON 4 MG/2 ML VIAL IVP ONE (07:00)
[2024-09-06] MEDS: IV FLUID CONTINUATION 1,000 ML IV ONE ×2 (07:02→08:52)
[2024-09-06] MEDS: ceFAZolin 1,000 MG in SODIUM CHLORIDE 0.9% 1,000 ML IRRIGATION ONE (07:25)
[2024-09-06] MEDS ORDERED: MIDAZOLAM 2 MG/2 ML VIAL ONE (07:42)
[2024-09-06] MEDS ORDERED: PROPOFOL 10 MG/ML 20 ML VIAL IV ONE (07:42)
[2024-09-06] MEDS ORDERED: GLYCOPYRROLATE 0.2 MG/ML 2 ML VIAL ONE (07:42)
[2024-09-06] MEDS ORDERED: fentaNYL (PF) 50 MCG/ML 2 ML AMP ONE (07:42)
[2024-09-06] MEDS ORDERED: LIDOCAINE 1% INJ 10MG/ML (20 ML MDV) ONE (07:42)
[2024-09-06] MEDS ORDERED: NEOSTIGMINE 1 MG/ML 10 ML VIAL ONE (07:42)
[2024-09-06] MEDS ORDERED: SUCCINYLCHOLINE CHLORIDE 200 MG/10 ML VIAL IV ONE (07:42)
[2024-09-06] MEDS ORDERED: ROCURONIUM 10 MG/ML (5 ML VIAL) IV ONE (07:42)
[2024-09-06] MEDS: BUPIVACAINE (PF) 0.5% 30 ML VIAL SQ ONE (07:45)
[2024-09-06 08:52] VITALS: TEMP 96.9
[2024-09-06 10:05] VITALS: RESP 18
[2024-09-06 10:15] VITALS: BP 126/70; PULSE 79
--- NOTE | 2024-09-06 16:10 | P.OP ---
Date of Procedure: 09/06/24 Preoperative Diagnosis: Subluxation of peroneal tendons right ankle Postoperative Diagnosis: 1. Subluxation peroneal tendons right ankle 2. Peroneus brevis tendinosis right ankle Procedure(s) Performed: 1. Repair of subluxing peroneal tendons without fibular osteotomy right ankle 2. Secondary repair flexor tendon right ankle Implants: Arthrex fiber tack anchors x 2 Anesthesia: GETA Surgeon: Sathish Corey Estimated Blood Loss (ml): 3 Pathology: none sent Condition: stable Disposition: PACU Description of Procedure: The patient was brought into the op room and placed on table supine position. Timeout was taken to confirm correct patient identifiers, correct laterality of surgery, and correct procedure. Once all staff in the room was in agreement the timeout, the patient was induced and placed under general anesthesia. A well- padded tourniquet was placed on the operative thigh and a wedge beneath the operative hip to internally rotate the leg. The leg was then prepped and draped in the usual manner. The leg was exsanguinated, the knee flexed, and the tourniquet plated to 250 mmHg. Attention was directed over the lateral ankle where a linear incision was made over the lateral malleolus. The incision was deepened down to the subcutaneous tissue careful to identify, void, and retract any neurovascular structures and cauterize any bleeding vessels. Blunt dissection was carried down to the level of the flexor tendon sheath as well as the flexor retinaculum. The retinaculum and sheath were incised sharply off the posterior aspect of the lateral malleolus. Both the peroneus brevis and longus were delivered into the surgical field. The longus appeared to have a normal morphology however the brevis was significantly thickened which was preventing both tendons from lying in the peroneal groove in the fibula. Debulking of the peroneus brevis tendon was performed with a scalpel. Then 2-0 Vicryl was used to retubularized the tendon. Drill holes were made for the attachment point of the peroneal retinaculum on the lateral malleolus. Fiber tack anchors were inserted into the drill holes and impacted down to proper depth. Utilizing the attached suture, the retinaculum was oversewn into the posterior aspect of the lateral malleolus to secure the peroneal tendons in their proper position. Once primary suturing was completed, the ankle was taken through range of motion and it was observed that the peroneal tendons glided smoothly through the area without any subluxation. 0 Vicryl was used to complete the repair of the retinaculum and tendon sheaths. The surgical site was thoroughly irrigated with antibiotic saline. Subcutaneous closure was done with 4-0 Monocryl and skin closure done with 4-0 Stratafix in a running subcuticular manner. Dermal glue and Steri-Strips were placed over the incision. Arthrex jumpstart and dry sterile dressing were applied to the ankle. The tourniquet was released and capillary refill returned all digits on the foot. Then a well-padded, well molded plaster posterior mold/sugar-tong splint was applied to the leg. The ankle was held in neutral position until the splint was fully dried. Then anesthesia was reversed and the patient was taken recovery with vital signs stable
== END 2024-09-06 10:33 | disposition home or self-care (01) ==
LOC: OR 06:00
PROVIDERS: ATTEND Podiatrist
DX: M76.71 Peroneal tendinitis, right leg (principal); M65.871 Other synovitis and tenosynovitis, right ankle and foot; S86.391A Other injury of muscle(s) and tendon(s) of peroneal muscle group at lower leg level, right leg, initial encounter; M06.9 Rheumatoid arthritis, unspecified; E78.5 Hyperlipidemia, unspecified; F41.9 Anxiety disorder, unspecified; D64.9 Anemia, unspecified; K21.9 Gastro-esophageal reflux disease without esophagitis; Z79.890 Hormone replacement therapy; Z79.899 Other long term (current) drug therapy; Z88.5 Allergy status to narcotic agent; Z88.8 Allergy status to other drugs, medicaments and biological substances; Z68.41 Body mass index [BMI] 40.0-44.9, adult
CPT/HCPCS: 27675; 27659; C1713 ×2; J2250; J0330; J1100; J2710; J0690 ×2; J2405; J2003; J3010; J2704; J0665; J1596